=== PATIENT | male | born 1960 | race American Indian/Alaskan Native ===

== ENCOUNTER 2021-01-28 18:10 | Emergency (ER) | payer OTHER ==
[2021-01-28 18:28] VITALS: BP 141/92
--- NOTE | 2021-01-28 18:39 | Emergency Department Report ---
ED General Adult HPI - General Chief complaint: Extremity Injury, Lower Stated complaint: Right leg pain PUI?: No Time Seen by Provider: 01/28/21 18:26 Source: patient, RN notes reviewed Mode of arrival: Ambulatory Limitations: No Limitations - History of Present Illness Initial comments: The patient was evaluated in the emergency department for symptoms described in the history of present illness. He/she was evaluated in the context of the global COVID-19 pandemic, which necessitated consideration that the patient might be at risk for infection with the virus that causes COVID-19. Institutional protocols and algorithms that pertain to the evaluation of patients at risk for COVID-19 are in a state of rapid change based on information released by regulatory bodies including the CDC and federal and state organizations. These policies and algorithms were followed during the patient's care in the emergency department. Please note that these policies, procedures and recommendations changed on a rapid basis. The patient is a 60-year-old gentleman, who is not known to myself previously, who is referred to the emergency room by his pain specialist to exclude a right lower extremity DVT. The patient has chronic disc related pain, and reports that he recently traveled to [place] to play golf. He reports that after playing golf, a few weeks ago, he felt like his right leg was slightly swollen. This is now resolved. He still has a cramp in his right calf. However, he denies headache, neck pain, chest pain, abdominal pain, shortness of breath. He has chronic musculoskeletal back pain. He denies Covid symptomatology. He feels like his legs are at their baseline at this time. He denies additional complaints. -: week(s) Location: right, lower extremity Severity scale (0 -10): 0 Consistency: now resolved Improves with: none Worsens with: none Associated Symptoms: denies other symptoms, other (Chronic musculoskeletal back pain) - Related Data Allergies Allergy/AdvReac Type Severity Reaction Status Date / Time acetaminophen [From Percocet] AdvReac Unknown Verified 01/28/21 18:22 oxycodone [From Percocet] AdvReac Unknown Verified 01/28/21 18:22 ED Review of Systems ROS: Stated complaint: POSSIBLE BLOOD CLOT RT LEG Other details as noted in HPI Constitutional: denies: fever Eyes: denies: eye discharge ENT: denies: epistaxis Respiratory: denies: cough Cardiovascular: denies: chest pain Gastrointestinal: denies: abdominal pain Musculoskeletal: back pain (Chronic), arthralgia, myalgia Neurological: denies: numbness, paresthesias ED Physical Exam - General Limitations: No Limitations General appearance: alert, in no apparent distress, obese - Head Head exam: Present: atraumatic, normocephalic - Eye Eye exam: Present: normal appearance, EOMI. Absent: nystagmus - ENT ENT exam: Present: normal exam, normal orophraynx, mucous membranes moist, normal external ear exam - Neck Neck exam: Present: normal inspection, full ROM. Absent: tenderness, meningismus - Respiratory Respiratory exam: Present: normal lung sounds bilaterally. Absent: respiratory distress, wheezes, rales, rhonchi, stridor, decreased breath sounds - Cardiovascular Cardiovascular Exam: Present: regular rate, normal rhythm, normal heart sounds. Absent: bradycardia, tachycardia, irregular rhythm, systolic murmur, diastolic murmur, rubs, gallop - GI/Abdominal GI/Abdominal exam: Present: soft. Absent: distended, tenderness, guarding, rebound, rigid, pulsatile mass - Rectal Rectal exam: Present: deferred - Extremities Exam Extremities exam: Present: normal inspection, full ROM, other (2+ pulses noted in the bilateral upper and lower extremities. There is no palpable cord. negative Homans sign. Muscular compartments are soft. The pelvis is stable.). Absent: pedal edema, calf tenderness - Back Exam Back exam: Present: normal inspection, paraspinal tenderness. Absent: tenderness, CVA tenderness (R), CVA tenderness (L) - Neurological Exam Neurological exam: Present: alert, oriented X3, normal gait, other (No facial droop. Tongue midline. Extraocular movements intact bilaterally. Facial sensation intact to light touch in V1, V2, V3 distribution bilaterally. 5 and a 5 strength in 4 extremities. Sensation intact to light touch in 4 extremities.). Absent: motor sensory deficit - Psychiatric Psychiatric exam: Present: normal affect, normal mood - Skin Skin exam: Present: warm, dry, intact, normal color. Absent: rash ED Course Vital Signs 01/28/21 18:27 Temperature 97.9 F Pulse Rate 76 Respiratory 16 Rate Blood Pressure 141/92 [Right] O2 Sat by Pulse 98 Oximetry ED Medical Decision Making - Lab Data Vital Signs 09/24/21 18:27 Temperature 97.9 F Pulse Rate 76 Respiratory 16 Rate Blood Pressure 141/92 [Right] O2 Sat by Pulse 98 Oximetry - Radiology Data Radiology results: pending, report reviewed, image reviewed DUPLEX DOPPLER LOWER EXTREMITY VEINS, RIGHT INDICATION / CLINICAL INFORMATION: Right lower extremity pain/swelling/cramp. TECHNIQUE: Duplex doppler imaging was performed through the veins of the right lower extremity using venous compression and other maneuvers. COMPARISON: None available. FINDINGS: RIGHT COMMON FEMORAL VEIN: Negative. RIGHT FEMORAL VEIN: Negative. RIGHT POPLITEAL VEIN: Negative. RIGHT CALF VEINS: Negative. ADDITIONAL FINDINGS: None. IMPRESSION: 1. No sonographic evidence for DVT in the right lower extremity. Signer Name: Margaret Lanier MD Signed: 01/28/2021 6:38 PM - Medical Decision Making Differential diagnosis, including but not limited to: Daley's cyst, DVT, sprain, strain Assessment and plan: 60-year-old gentleman, referred to the emergency room by his pain specialist to exclude right lower extremity DVT, after recently playing golf a few weeks ago, and having a road trip to [place]. He is afebrile, with reassuring vital signs. He has soft muscular compartments, and good pulses. Torres test is intact bilaterally. I do not appreciate a palpable cord. Right lower extremity DVT study was negative for acute findings. Patient does not appear to be in any acute distress. He reports that he is reliable to follow-up with his outpatient primary care doctor. Return precautions are reviewed Lung sounds are clear. No obvious asymmetry in his lower extremities Critical care attestation.: If time is entered above; I have spent that time in minutes in the direct care of this critically ill patient, excluding procedure time. ED Disposition Clinical Impression: Encounter for medical screening examination, Leg cramp Disposition: HOME / SELF CARE / HOMELESS Is pt being admited?: No Condition: Good Instructions: Muscle Cramps and Spasms, Muscle Cramps and Spasms, [id number] Additional Instructions: Please continue current outpatient medications. Alternate ice packs and heat packs as needed for physical pain. Participate in physical activity as tolerated. A right lower extremity DVT study demonstrated no clot in the right leg. Please follow-up with your primary care doctor or pain specialist within the next week. Please return to the emergency room right away with new pain, worsened pain, migration of pain, projectile vomiting, change in mental status, confusion, inability to tolerate liquid feeds, new, worsened or different symptoms not present on the initial emergency room evaluation
--- NOTE | 2021-01-28 19:42 | Vascular Lab Report ---
DUPLEX DOPPLER LOWER EXTREMITY VEINS, RIGHT INDICATION / CLINICAL INFORMATION: Right lower extremity pain/swelling/cramp. TECHNIQUE: Duplex doppler imaging was performed through the veins of the right lower extremity using venous compression and other maneuvers. COMPARISON: None available. FINDINGS: RIGHT COMMON FEMORAL VEIN: Negative. RIGHT FEMORAL VEIN: Negative. RIGHT POPLITEAL VEIN: Negative. RIGHT CALF VEINS: Negative. ADDITIONAL FINDINGS: None. IMPRESSION: 1. No sonographic evidence for DVT in the right lower extremity. Signer Name: Margaret Lanier MD Signed: 01/28/2021 7:38 PM Workstation Name: [id number]
== END 2021-01-28 20:30 | disposition home or self-care (01) ==
LOC: ED 18:10
DX: M79.604 Pain in right leg (principal); Z13.9 Encounter for screening, unspecified; Z88.5 Allergy status to narcotic agent; Z88.6 Allergy status to analgesic agent
CPT/HCPCS: 99283